=== PATIENT | male | born 1990 | race African-American/Black ===

== ENCOUNTER 2017-01-14 08:07 | Emergency (ER) | payer MEDICAID, OTHER ==
[~2017-01-14] VITALS: Ht 182.9 cm; Wt 100.0 kg
[~2017-01-14 08:07] MED LIST: ESCI10TA PO; ESOM40CA PO; QUET50XR PO
[2017-01-14 08:38] LABS: APPEARANCE,URINE CLOUDY (CLEAR); GLUCOSE, URINE (UA) NEGATIVE (NEGATIVE); KETONES,URINE NEGATIVE (NEGATIVE); LEUKOCYTE ESTERASE ,URINE LARGE (NEGATIVE); OCCULT BLOOD,URINE TRACE (NEGATIVE); PH,URINE 5.5 (5.0-8.0); PROTEIN,URINE TRACE (NEGATIVE)
[2017-01-14 08:46] LABS: ADD UA MICROSCOPIC YES
[2017-01-14 08:47] LABS: RBC,URINE 0-2 /HPF (0-2); WBC,URINE 51-100 /HPF (0-5)
[2017-01-14] MEDS ORDERED: AZITHROMYCIN 250 MG TABLET PO ONE (10:45)
[2017-01-14] MEDS ORDERED: CefTRIAXone SODIUM 1 GM/VIAL IM ONE (10:45)
[2017-01-14] MEDS ORDERED: LIDOCAINE HCL/PF 1% 2 ML VIAL IM ONE (10:45)
[2017-01-14 11:04] VITALS: BP 119/73
[2017-01-15 21:44] LABS: GC DNA N.A. AMPLIFY Positive (Negative)
== END 2017-01-14 11:36 | disposition home or self-care (01) ==
LOC: EMS 08:11
DX: N39.0 Urinary tract infection, site not specified (principal); A56.01 Chlamydial cystitis and urethritis; F17.210 Nicotine dependence, cigarettes, uncomplicated
CPT/HCPCS: 81001; 87086; 87491; 87591; 96372; 99284; J0696; J3490

== ENCOUNTER 2017-07-01 08:26 | Emergency (ER) | payer OTHER ==
[~2017-07-01] VITALS: Ht 182.9 cm; Wt 110.0 kg
[2017-07-01 08:41] VITALS: BP 141/83
[2017-07-01] MEDS ORDERED: PENICILLIN G BENZATHINE LA 1,200,000 UNITS/2 ML SYRINGE IM ONE (09:45)
== END 2017-07-01 10:13 | disposition home or self-care (01) ==
LOC: EMS 08:28
DX: J02.0 Streptococcal pharyngitis (principal)
CPT/HCPCS: 87430; 96372; 99283; J0561

== ENCOUNTER 2017-08-26 18:27 | Emergency (ER) | payer OTHER ==
[~2017-08-26] VITALS: Ht 182.9 cm; Wt 106.8 kg
[2017-08-26] MEDS ORDERED: AZITHROMYCIN 250 MG TABLET PO ONE (19:45)
[2017-08-26] MEDS ORDERED: CefTRIAXone SODIUM 1 GM/VIAL IM ONE (19:45)
[2017-08-26] MEDS ORDERED: LIDOCAINE HCL/PF 1% 2 ML VIAL IM ONE (19:45)
[2017-08-26 20:28] VITALS: BP 132/68
== END 2017-08-26 20:32 | disposition home or self-care (01) ==
LOC: EMS 18:28
DX: A54.01 Gonococcal cystitis and urethritis, unspecified (principal); A56.01 Chlamydial cystitis and urethritis
CPT/HCPCS: 81002; 96372; 99283; J0696; J3490

== ENCOUNTER 2017-11-03 11:04 | Emergency (ER) | payer OTHER ==
[~2017-11-03] VITALS: Ht 182.9 cm; Wt 111.4 kg
[2017-11-03] MEDS ORDERED: AZITHROMYCIN 250 MG TABLET PO ONE (12:45)
[2017-11-03] MEDS ORDERED: CefTRIAXone SODIUM 1 GM/VIAL IM ONE (12:45)
[2017-11-03] MEDS ORDERED: LIDOCAINE HCL/PF 1% 2 ML VIAL IM ONE (13:00)
[2017-11-03 13:13] VITALS: BP 142/69
== END 2017-11-03 13:20 | disposition home or self-care (01) ==
LOC: EMS 11:11
DX: A74.9 Chlamydial infection, unspecified (principal); A54.9 Gonococcal infection, unspecified
CPT/HCPCS: 81002; 96372; 99283; J0696; J3490

== ENCOUNTER 2018-06-02 09:18 | Emergency (ER) | payer OTHER ==
[~2018-06-02] VITALS: Ht 182.9 cm; Wt 118.2 kg
[2018-06-02 09:26] VITALS: BP 135/67
[2018-06-02] MEDS ORDERED: DEXAMETHASONE SOD PHOS 4 MG/ML 5 ML VIAL IM ONE (11:15)
[2018-06-02] MEDS ORDERED: IBUPROFEN 600 MG TABLET PO ONE (11:15)
== END 2018-06-02 12:18 | disposition home or self-care (01) ==
LOC: EMS 09:19
DX: J02.8 Acute pharyngitis due to other specified organisms (principal); B97.89 Other viral agents as the cause of diseases classified elsewhere
CPT/HCPCS: 87430; 96372; 99283; J1100

== ENCOUNTER 2019-10-03 19:51 | Emergency (ER) | payer SELFPAY ==
[~2019-10-03] VITALS: Ht 182.9 cm; Wt 113.6 kg
[2019-10-03 21:04] LABS: APPEARANCE,URINE CLOUDY (CLEAR); BILIRUBIN,URINE NEGATIVE (NEGATIVE); GLUCOSE, URINE (UA) NEGATIVE (NEGATIVE); KETONES,URINE TRACE mg/dL (NEGATIVE); LEUKOCYTE ESTERASE ,URINE MODERATE (NEGATIVE); NITRATE,URINE NEGATIVE (NEGATIVE); OCCULT BLOOD,URINE TRACE (NEGATIVE); PROTEIN,URINE NEGATIVE (NEGATIVE); UROBILINOGEN,URINE 0.2 mg/dL (<=1.0)
[2019-10-03 21:10] LABS: RBC,URINE 0-2 /HPF (0-2); WBC,URINE >100 /HPF (0-5)
[2019-10-03 21:14] LABS: BACTERIA,URINE Few /HPF (None Seen); SQUAMOUS EPITHELIAL CELL,UR Rare /LPF (None Seen)
[2019-10-03] MEDS ORDERED: LIDOCAINE/PF 1% 2 ML VIAL IM ONE (21:15)
[2019-10-03] MEDS ORDERED: CefTRIAXone SODIUM 1 GM/VIAL IM ONE (21:15)
[2019-10-03] MEDS ORDERED: AZITHROMYCIN 250 MG TABLET PO ONE (21:15)
[2019-10-03 22:34] VITALS: BP 139/88
== END 2019-10-03 22:48 | disposition home or self-care (01) ==
LOC: EMS 19:52
DX: A56.01 Chlamydial cystitis and urethritis (principal)
CPT/HCPCS: 81001; 87086; 87491; 87591; 96372; 99283; J0696; J3490